=== PATIENT | female | born 1955 | race Asian ===

== ENCOUNTER → 2020-11-23 | Day surgery (SDC) | payer OTHER ==
[~2020-11-23] MED LIST: ALEN70TA71 PO; ASPI-630 PO; CALC-98 PO; IPRATRPIUM/ALBUTEROL 0.5/2.5MG 3 ML NEBU. NEB PRN; IV RINGERS SOLUTION,LACTATED 1,000 ML IV SCH; LIDOCAINE 2% PF 5 ML VIAL. ONE; MIDAZOLAM HCL PF 2 MG/2 ML VIAL. IV ONE; MV-M1TAB7 PO; ONDANSETRON PF 4 MG/2 ML VIAL. IV PRN; PROPOFOL 10,000 MCG/ML (20ML) VIAL IV ONE
[2020-11-23 11:15] VITALS: BP 141/84
--- NOTE | 2020-11-25 15:10 | PATHOLOGY ---
[facility] Accession Number: [id number] . 01 Material submitted: . PART A: cecum - CECUM POLYP PART B: hepatic flexure - HEPATIC FLEXURE POLYP . 01 Clinical history: . SCREENING COLONOSCOPY . 02 Diagnosis: A. Colon biopsy, cecal polyp: - Prominent mucosal fold. . B. Colon biopsy, hepatic flexure polyp: - Tubular adenoma. [facility] 11/25/2020 1058 Local . 02 Comment: There is no high grade dysplasia or evidence of malignancy. (JPM/db; 11/25/2020) . 02 Electronically signed: . Royal Ordoñez MD, Pathologist NPI- [id number] . 01 Gross description: . A. The specimen is received in formalin, labeled "Javan, Telma W, cecum polyp". It consists of 2 jacobsen polypoid soft tissue fragments measuring 0.2 and 0.4 cm. The specimen is entirely submitted between sponges in A1. . B. The specimen is received in formalin, labeled "Javan, Telma W, hepatic flexure polyp". It consists of a jacobsen polypoid soft tissue fragment measuring 0.4 x 0.3 x 0.2 cm. The specimen is entirely submitted between sponges in B1. (MRF; 11/24/2020) MFE/MFE 11/24/20209 Local . 02 Pathologist provided ICD-10: D12.3, Z12.11 . 02 CPT . 988890, 302331 Specimen Comment: A courtesy copy of this report has been sent to [phone] Specimen Comment: [id number] Specimen Comment: Report sent to / DR MESA Performed at: [address] [place] [address] [facility] [address], [place], [place] [id number] MD Aaron Jones MD Phone: [phone] Performed at: [address] [id number] MD Royal Ordoñez MD Phone: [phone]
== END | disposition home or self-care (01) ==
LOC: SURG 08:58
PROVIDERS: ATTEND Internal Medicine Gastroenterology
DX: Z12.11 Encounter for screening for malignant neoplasm of colon (principal); D12.3 Benign neoplasm of transverse colon; K63.89 Other specified diseases of intestine; K64.8 Other hemorrhoids; K64.4 Residual hemorrhoidal skin tags; M81.0 Age-related osteoporosis without current pathological fracture; Z98.890 Other specified postprocedural states; Z79.899 Other long term (current) drug therapy; Z20.822 Contact with and (suspected) exposure to COVID-19
CPT/HCPCS: 45380; 88305; C9803; J2001; J2704; J7120; U0003

== ENCOUNTER → 2021-07-14 | Outpatient (CLI) | payer OTHER ==
[2020-11-23 11:15] VITALS: BP 141/84
[~2021-07-14] MED LIST changes: -IPRATRPIUM/ALBUTEROL 0.5/2.5MG 3 ML NEBU. NEB PRN; -IV RINGERS SOLUTION,LACTATED 1,000 ML IV SCH; -LIDOCAINE 2% PF 5 ML VIAL. ONE; -MIDAZOLAM HCL PF 2 MG/2 ML VIAL. IV ONE; -ONDANSETRON PF 4 MG/2 ML VIAL. IV PRN; -PROPOFOL 10,000 MCG/ML (20ML) VIAL IV ONE
--- NOTE | 2021-07-14 16:49 | RAD ---
US HEAD/NECK SOFT TISSUE History: Right neck and cheek swelling. 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 Comparison: None. Technique: Multiple grayscale and color Doppler images of the neck were obtained. Findings: The right parotid gland demonstrates normal echogenicity without hyperemia. The left submandibular gland demonstrates a focal area measuring 0.9 x 0.7 x 1.0 cm demonstrating het erogeneous echogenicity with partially circumscribed ovoid margin. No significant color Doppler blood flow. IMPRESSION: Nonspecific masslike area in the right submandibular gland does not resemble a normal lymph node. Simi or history of neurofibromatosis, recommend MRI of the neck with contrast for further evaluation. Electronically signed by: Sundeep Bryan MD (07/14/2021 4:47 PM) [id number]
== END ==
LOC: US 13:24
PROVIDERS: ATTEND Family Medicine Sports Medicine
DX: R22.1 Localized swelling, mass and lump, neck (principal); Z98.890 Other specified postprocedural states
CPT/HCPCS: 76536

== ENCOUNTER 2021-08-18 21:31 | Emergency (ER) | payer MEDICARE, OTHER ==
[~2021-08-18] VITALS: Ht 157.5 cm; Wt 59.0 kg
[2021-08-18 21:31] VITALS: BP 135/82
[2021-08-18] MEDS ORDERED: PRED-220 PO (22:06)
--- NOTE | 2021-08-18 22:06 | PHYS DOC ---
Past History Past Medical History: No Pertinent History, Other (MIKE ISBELL APRN) Past Surgical History: Other (MIKE ISBELL APRN) Alcohol Use: Rarely Drug Use: None (MIKE ISBELL APRN) General Adult EDM: Chief Complaint: SKIN RASH/ABSCESS HPI: HPI: Patient is a 66-year-old female who presents to the emergency department today for a red itchy rash to her bilateral arms and left leg that started today. Patient reports that the rash started after she was picking weeds. Patient reports that she has had this reaction previously when picking weeds. Patient denies any fevers, nausea or vomiting. (MIKE ISBELL APRN) Review of Systems: Review of Systems: Constitutional: See HPI Eyes: Denies change in visual acuity HENT: Denies nasal congestion or sore throat Respiratory: Denies cough or shortness of breath Cardiovascular: Denies chest pain or edema GI: See HPI : Denies dysuria Musculoskeletal: Denies back pain or joint pain Integument: See HPI Neurologic: Denies headache, focal weakness or sensory changes Endocrine: Denies polyuria or polydipsia Lymphatic: Denies swollen glands Psychiatric: Denies depression or anxiety (MIKE ISBELL APRN) Allergies: Allergies: Allergies Coded Allergies Type Severity Reaction Last Updated Verified clindamycin Allergy Intermediate RASH 11/23/20 Yes oxycodone Allergy Intermediate vomiting 11/23/20 Yes (MIKE ISBELL APRN) Physical Exam: PE: Constitutional: Well developed, well nourished, no acute distress, non-toxic appearance. [] HENT: Normocephalic, atraumatic, bilateral external ears normal, oropharynx moist, no oral exudates, nose normal. [] Eyes: PERRL, EOMI, conjunctiva normal, no discharge. [] Neck: Normal range of motion, no tenderness, supple, no stridor. [] Cardiovascular: Normal peripheral perfusion Lungs & Thorax: Normal work of breathing, no tachypnea Abdomen: Soft and flat Skin: Warm, dry, erythematous vesicular rash noted to patient's left anterior thigh and bilateral forearms.. The rash to her left forearm has swelling surrounding it Back: No tenderness, normal range of motion Extremities: No tenderness, no cyanosis, no clubbing, ROM intact, no edema. [] Neurologic: Alert and oriented X 3, normal motor function, normal sensory function, no focal deficits noted. [] Psychologic: Affect normal, judgement normal, mood normal. [] (MIKE ISBELL APRN) EKG: EKG: [] (MIKE ISBELL APRN) Radiology/Procedures: Radiology/Procedures: [] (MIKE ISBELL APRN) Heart Score: C/O Chest Pain: N/A Risk Factors: Risk Factors: DM, Current or recent (<one month) smoker, HTN, HLP, family history of CAD, obesity. Risk Scores: Score 0 - 3: 2.5% MACE over next 6 weeks - Discharge Home Score 4 - 6: 20.3% MACE over next 6 weeks - Admit for Clinical Observation Score 7 - 10: 72.7% MACE over next 6 weeks - Early Invasive Strategies (MIKE ISBELL APRN) Course & Med Decision Making: Course & Med Decision Making Pertinent Labs and Imaging studies reviewed. (See chart for details) [] Patient presents to the emergency department for itchy erythematous vesicular rash to her bilateral arms and left anterior leg after pulling weeds. Rash is consistent with poison oak. Patient will be treated for dermatitis with steroid taper. She was given first dose in the ER. Advised to take Benadryl [id number] for itching. Her vital signs are stable. I discussed with patient all findings and diagnostic testing as well as the need to follow-up with PCP for further evaluation and treatment or return to the ER if any new or worsening symptoms. Strict return precautions were also discussed at length. Patient voiced understanding and agreement with the plan. Patient is hemodynamically stable at the time of disposition. (MIKE ISBELL APRN) Dragon Disclaimer: Dragon Disclaimer: This electronic medical record was generated, in whole or in part, using a voice recognition dictation system. (MIKE ISBELL APRN) Departure Departure: Impression: Primary Impression: Contact dermatitis Qualified Codes: L25.5 - Unspecified contact dermatitis due to plants, except food Disposition: HOME / SELF CARE / HOMELESS Condition: GOOD Referrals: SALVATORE ALVARADO MD (PCP) Patient Instructions: Contact Dermatitis Additional Instructions: You were seen in the emergency department today for rash. You likely you are experiencing contact dermatitis from a plant. You are being treated with a steroid taper. Please start and finish the steroid completely. You can take Benadryl [id number] for itching. Follow-up with your primary care provider within a couple of days for recheck. Return to the emergency department if you develop worsening of your rash, shortness of breath, high fevers refractory to treatment or intractable nausea or vomiting. Scripts Prednisone (PREDNISONE) 10 Mg Tablet 10 MG PO UD for rash, #39 TAB 0 Refills Take 3 tablets by mouth twice a day for 3 days, then take 2 tablets by mouth twice a day for 3 days, then take 1 tablet by mouth twice a day for 3 days, then take 1 tablet by mouth daily x 3 days, then stop. Prov: MIKE ISBELL APRN 08/18/21 Dragon Disclaimer This chart was dictated in whole or in part using Voice Recognition software in a busy, high-work load, and often noisy Emergency Department environment. It may contain unintended and wholly unrecognized errors or omissions. (EARLE ZAZUETA MD) Attending Signature Attending Signature I have participated in the care of this patient and I have reviewed and agree with all pertinent clinical information above including history, exam, and recommendations. (EARLE ZAZUETA MD) MIKE ISBELL APRN August 18, 2021 22:06 EARLE ZAZUETA MD August 20, 2021 04:12
[2021-08-18] MEDS ORDERED: predniSONE 10 MG TABLET. PO ONE (22:30)
== END 2021-08-18 23:11 | disposition home or self-care (01) ==
LOC: ER 21:31
DX: L25.5 Unspecified contact dermatitis due to plants, except food (principal); Z88.1 Allergy status to other antibiotic agents; Z88.5 Allergy status to narcotic agent
CPT/HCPCS: 99283; J7512